=== PATIENT | male | born 1950 | race Caucasian/White ===

== ENCOUNTER 2018-06-02 18:20 | Emergency (ER) | payer MEDICARE, OTHER ==
[~2018-06-02] VITALS: Ht 175.3 cm; Wt 88.9 kg
[2018-06-02] MEDS ORDERED: MICARDIS80 MG PO (18:46)
[2018-06-02] MEDS ORDERED: LEVOTHYROXINE88 MCG PO (18:46)
[2018-06-02] MEDS ORDERED: ASPIRIN81 MG PO (18:46)
[2018-06-02] MEDS ORDERED: ALLEGRA ALLERG180 MG PO (18:47)
== END 2018-06-02 20:01 | disposition home or self-care (01) ==
LOC: ED 18:20
DX: S42.202A Unspecified fracture of upper end of left humerus, initial encounter for closed fracture (principal); Z87.891 Personal history of nicotine dependence; Z88.6 Allergy status to analgesic agent; Z88.5 Allergy status to narcotic agent; Z79.82 Long term (current) use of aspirin; Z79.899 Other long term (current) drug therapy; W01.0XXA Fall on same level from slipping, tripping and stumbling without subsequent striking against object, initial encounter
CPT/HCPCS: 73030; 99283